=== PATIENT | male | born 1950 | race Caucasian/White ===

== ENCOUNTER 2019-02-18 10:02 | Outpatient (CLI) | payer MEDICARE ==
--- NOTE | 2019-02-18 10:51 | RAD ---
THORACIC SPINE RADIOGRAPHS 3 VIEWS: Date: 02/18/19 PROVIDED CLINICAL HISTORY: Back pain. FINDINGS: Thoracic alignment appears normal in the sagittal plane. Mild left convexity thoracic curvature. Pedi cles appear intact. Vertebral body heights appear preserved. Multilevel thoracic disc degenerative ch anges are seen. IMPRESSION: Multilevel thoracic disc degenerative change. POS: [facility]
--- NOTE | 2019-02-18 10:53 | RAD ---
FRONTAL CHEST RADIOGRAPH WITH 2 VIEWS RIGHT RIBS: Date: 02/18/19 PROVIDED CLINICAL HISTORY: Chest pain. FINDINGS: Comparison made with the chest radiograph of 11/03/12. Cardiac and mediastinal silhouette is unchanged in appearance. Development of left basilar and suprah ilar nodules, the suprahilar of which measures about 1.9 cm. Chronic obstructive changes are redemons trated. No pleural fluid or pneumothorax apparent. There is no evidence for a displaced right-sided rib fracture. IMPRESSION: Left-sided pulmonary nodules. Further evaluation with chest CT is recommended. CODE T. POS: [facility]
== END 2019-02-18 10:03 | disposition home or self-care (01) ==
LOC: BICRAD 10:02
PROVIDERS: ATTEND Family Medicine
DX: M54.6 Pain in thoracic spine (principal); R07.81 Pleurodynia; R91.8 Other nonspecific abnormal finding of lung field; M51.34 Other intervertebral disc degeneration, thoracic region
CPT/HCPCS: 72072

== ENCOUNTER 2019-02-28 11:58 | Outpatient (CLI) | payer MEDICARE ==
--- NOTE | 2019-02-28 14:23 | CT ---
LOW DOSE CHEST CT: DATE: 02/28/2019 COMPARISON: 08/29/2016. HISTORY: Screening examination, current smoker, personal history of nicotine dependence. TECHNIQUE: Axial CT imaging at 1.25 mm intervals from thoracic inlet through upper abdomen without co ntrast. Coronal and sagittal reformatted imaging obtained. FINDINGS: The lack of contrast media limits assessment of the viscera, vascular structures, and for l ymphadenopathy. The imaged upper abdomen demonstrates atherosclerotic calcification of the abdominal aorta and its br anches. No pleural, pericardial, or mediastinal fluid is seen. There is atherosclerotic calcification of the coronary arteries, the aortic arch, and the descending thoracic aorta. Mildly enlarged lymph nodes are seen within the AP window measuring up to 10 mm in short axis dimensi on. No pneumothorax is evident on either side. Left upper lobe: Numerous pulmonary nodules are noted throughout the left upper lobe with an apical p redominance. These nodules demonstrate irregular margins and are almost all new when compared to the prior exam. There are at least 10 such nodules present, measuring up to 8 mm. Left lower lobe: There is a dominant mass in the superior segment of the left lower lobe with irregul ar spiculated margins measuring 2 cm. Numerous additional new pulmonary nodules are noted within the left lower lobe with a superior predominance, all of which demonstrate irregular peripheral nato ns and measure less than a centimeter in size. Left upper lobe: Numerous new irregular subcentimeter pulmonary nodules are noted within the right up per lobe with an apical predominance. Right middle lobe: There are a few scattered subcentimeter irregularly marginated pulmonary nodules, new. Right lower lobe: Numerous irregularly marginated subcentimeter right lower lobe pulmonary nodules ar e present, the majority of which are new when compared to the prior exam. Review of the osseous structures demonstrates an expansile lytic lesion within the fifth rib laterall y on the right. IMPRESSION: Lung-RADS category 4B - suspicious. Recommend further assessment with PET/CT. Findings are concerning for bronchogenic carcinoma within the superior segment of the left lower lobe. Additional pulmonary nodules bilaterally may be metastatic in nature and lytic lesion within the fifth rib on th e right is concerning for metastatic disease. Lung RADS category S - significant atherosclerotic disease, including coronary arterial disease. CODE T Transcribed Date/Time: 02/28/2019 2:52 PM
== END 2019-02-28 11:59 | disposition home or self-care (01) ==
LOC: CT 11:58
PROVIDERS: ATTEND Family Medicine
DX: F17.210 Nicotine dependence, cigarettes, uncomplicated (principal); R91.1 Solitary pulmonary nodule; I25.10 Atherosclerotic heart disease of native coronary artery without angina pectoris
CPT/HCPCS: G0297

== ENCOUNTER 2019-03-10 07:52 | Outpatient (CLI) | payer MEDICARE ==
--- NOTE | 2019-03-10 13:46 | PET ---
PET CT: 03/10/19 HISTORY: 69-year-old male with bronchogenic carcinoma of the left lung. TECHNIQUE: PET scan with CT attenuation correction is performed from the base of the brain through the proximal thighs following the intravenous administration of 11.7 millicuries of 15-fluorodeoxyglucose in the r ight hand. COMPARISON: None. CORRELATION: LDCT of the lungs of 02/28/19. FINDINGS: There is hypermetabolic activity in the 2 cm nodule in the superior segment of the left lower lobe an d an SUV of 4.5. Associated hypermetabolic lymphadenopathy seen in the left hilar lymph nodes with l ymph node with an SUV of 5.4 and in the left mediastinal lymph node with an SUV of 3.6. There is focal increased uptake in the right lateral fifth rib with an SUV of 7.2. There is a hypermetabolic nodule in the deep subcutaneous fat of the left lower posterolateral chest with an SUV of 4.9. Focally increased uptake in the right iliopsoas muscles has an SUV of 7 and the l eft groin musculature with an SUV of 4.6. No hypermetabolic liver or adrenal lesions are seen. There is physiologic activity in the GI and tracts and the visualized portions of the brain. The CT scan used for attenuation correction demonstrates no evidence of pleural effusions or ascites. Multiple parenchymal lung nodules are too small for the resolution of the PET scanner and are consid ered suspicious for metastatic disease despite the absence of hypermetabolic activity on the PET scan . IMPRESSION: Left lower lobe lung malignancy with metastatic disease. POS: CHERRY
== END 2019-03-10 07:53 | disposition home or self-care (01) ==
LOC: PET 07:52
PROVIDERS: ATTEND Family Medicine
DX: C34.32 Malignant neoplasm of lower lobe, left bronchus or lung (principal)
CPT/HCPCS: 78815; A9552

== ENCOUNTER 2019-03-17 08:07 | Day surgery (SDC) | payer MEDICARE ==
[2019-03-16 13:52] VITALS: BMI 27.7
[2019-03-17 08:25] LABS: #Eosinphils 0.3 thou/uL (0.0-0.7); #Lymphocytes 2.1 thou/uL (1.20-3.40); #Monocytes 1.1 thou/uL (0.11-0.59); #Neutrophils 5.7 thou/uL (1.40-6.50); %Basophils 0.5 % (0.0-1.0); %Eosinophils 3.3 % (0.0-10.0); %Neutrophils 61.3 % (42.0-75.0); Mean Corpuscular HGB CONC 34.3 g/dL (32.0-36.0); Mean Corpuscular Volume 93.2 fL (78.0-98.0); Mean Platelet Volume 7.8 fL (7.4-10.4); Platelet Count 275 thou/uL (130-400); RBC Distribution Width 13.2 % (11.5-14.5); Red Blood Cell (RBC) Count 5.01 mill/uL (4.70-6.10); White Blood Cell (WBC) Count 9.3 thou/uL (4.8-10.8)
[2019-03-17 08:39] LABS: Prothrombin Time 12.8 SEC (12.0-14.7)
[2019-03-17 09:27] VITALS: BP 169/73; TEMP 97.7
--- NOTE | 2019-03-17 12:41 | CT ---
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 TECHNIQUE: Signed informed consent obtained. Patient placed supine on CT table. Anterior approach. Entire proced ure was performed under step CT guidance. Overlying skin around the right nipple was prepared and draped in usual sterile fashion. 25-gauge needle used to apply buffered lidocaine superficially and d eeply to the anterior outer surface of right chest wall muscles. 22-gauge spinal needle used to 2 apply local anesthesia, deeper into those muscles and into the surface of the destructive lesion at t he right fifth rib. Tandem with the spinal needle, 17-gauge introducer needle advanced into the anterior portion of the right rib lesion. Stylette removed. 18-gauge biopsy needle advanced in coaxia l fashion through the introducer needle. Biopsy gun fired, yielding little or no tissue. This was repeated, and minimal, tiny fragments were smeared on slides, then placed into formalin. This was rep eated a few more times, for a total of 5 passes. Amount of tissue material is scant. Suspicious cells are visualized on the right microscopy by pathologist, but adequacy is questionable. Needle was removed. Patient tolerated procedure well. No complication is after postbiopsy scan. IMPRESSION: 1. CT-guided 18-gauge percutaneous core biopsy of the osteolytic destructive lesion of the lateral as pect of right fifth rib x5. 2. Scant material. A final pathology report.
== END 2019-03-17 11:45 | disposition home or self-care (01) ==
LOC: CT 08:07
PROVIDERS: ATTEND Internal Medicine
PROC: 0PB13ZX Excision of 1 to 2 Ribs, Percutaneous Approach, Diagnostic (ICD-10-PCS; principal; 2019-03-17)
DX: C79.51 Secondary malignant neoplasm of bone (principal); C80.1 Malignant (primary) neoplasm, unspecified; I10 Essential (primary) hypertension; E78.5 Hyperlipidemia, unspecified; F17.210 Nicotine dependence, cigarettes, uncomplicated; J44.9 Chronic obstructive pulmonary disease, unspecified
CPT/HCPCS: 20225; 36415; 77012; 85025; 85610; 85730; 88173; 88305; 88313; 88333; 88334; 88341; 88342

== ENCOUNTER 2019-03-31 07:37 | Outpatient (CLI) | payer MEDICARE ==
[2019-03-31] MEDS ORDERED: Gadobenate Dimeglumine 529 MG/1 ML (20ML VIAL) ONE (09:00)
--- NOTE | 2019-03-31 09:00 | MRI ---
BRAIN MRI WITH AND WITHOUT CONTRAST: DATE: 03/31/2019. COMPARISON: None available. HISTORY: Lung cancer, assess for metastatic disease. TECHNIQUE: Multiplanar multisequence MR imaging of the brain obtained with and without contrast. FINDINGS: The diffusion weighted imaging demonstrates no evidence for acute infarction. There is a single focus of blooming artifact within the anterior inferior aspect of the left frontal lobe measuring 5 mm. Multiple scattered foci of increased T2 and FLAIR signal noted within the periventricular, deep, and subcortical white matter, suggesting stable small vessel disease. Regional bone marrow signal intensity appears grossly unremarkable. Arterial flow voids at the axial level of the skull base appear unremarkable on the T2-weighted imagi ng. The postcontrast imaging demonstrates no abnormal enhancement to suggest the presence of intracranial metastatic disease within the posterior fossa or brainstem. There is an incidentally noted developmental venous anomaly within the temporal lobe on the right. No abnormal enhancement is identi fied within the cerebellar hemispheres to suggest metastatic disease. The area of blooming artifact mentioned above within the left frontal lobe is likely on the basis of calcification or remote hemorrhage given lack of enhancement in this region. IMPRESSION: No MR evidence of intracranial metastatic disease. Transcribed Date/Time: 03/31/2019 9:11 AM
== END 2019-03-31 07:38 | disposition home or self-care (01) ==
LOC: SCSMRI 07:37
PROVIDERS: ATTEND Internal Medicine Hematology & Oncology
DX: C34.32 Malignant neoplasm of lower lobe, left bronchus or lung (principal)
CPT/HCPCS: 70553; A9577

== ENCOUNTER 2019-04-01 08:47 | Day surgery (SDC) | payer MEDICARE ==
[2019-03-31 14:34] VITALS: BMI 26.9
[~2019-04-01 08:47] MED LIST: Prevnar 13-Val Conj/PF 0.5 ML SYRINGE IM ONE
[2019-04-01] MEDS ORDERED: Midazolam HCl 2 mg/2 ml Vial ONE (09:43)
[2019-04-01] MEDS ORDERED: Fentanyl 100 MCG/2 ML VIAL ONE (09:43)
--- NOTE | 2019-04-01 10:53 | RAD ---
INSPIRATORY EXPIRATORY CHEST RADIOGRAPH: CLINICAL HISTORY: Status post left lung biopsy. FINDINGS: There is no significant postprocedural pneumothorax. Left lower lobe nodule remains, and i s status post biopsy. IMPRESSION: No significant, postprocedural pneumothorax of the left chest. Transcribed Date/Time: 04/01/2019 12:13 PM
--- NOTE | 2019-04-01 11:24 | CT ---
CT GUIDED LEFT LUNG BIOPSY: CLINICAL HISTORY: Left lower lobe pulmonary nodule. PROCEDURE: Informed consent was obtained and the patient was escorted to the procedural suite, placed in prone p osition. The patient's skin was prepped and draped in a standard sterile fashion and topical anesthesia with buffered 1% lidocaine was performed. After a small skin incision was made, a 20-gauge needle were advanced to the leading edge of the left lower lobe pulmonary nodule. After adequate placement was confirmed with CT fluoroscopic imaging, fine-needle aspirate sampling was obtained via percutaneous biopsy. Appropriate location was confirmed with CT fluoroscopic imaging and the specimens were submitted to the pathologist for adequacy. Specimens were deemed adequate for interpre tation. Therefore, all devices were then removed from the patient. No unexpected procedural complications were present. The patient was monitored in radiology holding i n stable condition prior to discharge with family member. IMPRESSION: Technically successful percutaneous left lung biopsy. Pathology results are pending.
--- NOTE | 2019-04-01 12:52 | RAD ---
EXAM: Chest 2 views: HISTORY: Left lung biopsy COMPARISON: CT chest 04/01/2019 FINDINGS: There is a normal-sized cardiomediastinal silhouette. No pneumothorax is seen. There is no evidence of consolidation, mass, or pleural effusion. Multiple left remote rib fractures are seen. IMPRESSION: No evidence of pneumothorax status post left lung biopsy
== END 2019-04-01 12:55 | disposition home or self-care (01) ==
LOC: CT 08:47
PROVIDERS: ATTEND Internal Medicine Hematology & Oncology
DX: C34.32 Malignant neoplasm of lower lobe, left bronchus or lung (principal); F17.210 Nicotine dependence, cigarettes, uncomplicated; I10 Essential (primary) hypertension; M19.90 Unspecified osteoarthritis, unspecified site; Z86.73 Personal history of transient ischemic attack (TIA), and cerebral infarction without residual deficits
CPT/HCPCS: 32405; 71045; 77012; 88172; 88173; 88305; 88341; 88342; J2250; J3010

== ENCOUNTER 2019-04-03 09:59 | Emergency (ER) | payer MEDICARE ==
[2019-04-03] MEDS ORDERED: Ondansetron ODT 4 MG TAB ONE (11:11)
[2019-04-03] MEDS ORDERED: Morphine 4 MG/ML VIAL ONE (11:11)
[2019-04-03] MEDS ORDERED: Ketorolac Tromethamine 30 MG/ML VIAL ONE (11:11)
== END 2019-04-03 11:49 | disposition home or self-care (01) ==
LOC: ERS 09:59
DX: M54.6 Pain in thoracic spine (principal); R07.81 Pleurodynia; F17.210 Nicotine dependence, cigarettes, uncomplicated
CPT/HCPCS: 96372; 99283; J1885; J2270; Q0162

== ENCOUNTER 2019-05-04 08:47 | Day surgery (SDC) | payer MEDICARE, OTHER ==
[~2019-05-04 08:47] MED LIST changes: +CARBOPLATIN IVPB SCH; +Palonosetron HCl 0.25 MG in Sodium Chloride 0.9% 50 ML IVPB SCH; +Pembrolizumab 200 MG in Sodium Chloride 0.9% 250 ML 250 ML IV SCH; +Pemetrexed 1,000 MG in Sodium Chloride 0.9% 60 ML IVPB SCH; -Prevnar 13-Val Conj/PF 0.5 ML SYRINGE IM ONE; +SODIUM CHLORIDE 0.9% IVPB SCH
[2019-05-04] MEDS ORDERED: Sodium Chloride 0.9% 20 ML ONE (08:58)
[2019-05-04 09:58] VITALS: BP 184/84; TEMP 98.8
[2019-05-04] MEDS ORDERED: CARBOPLATIN IVPB SCH (11:15)
[2019-05-04] MEDS ORDERED: SODIUM CHLORIDE 0.9% IVPB SCH (11:15)
[2019-05-04] MEDS ORDERED: Lorazepam 2 MG/ML VIAL SLOW IVP SCH (13:15)
== END 2019-05-04 13:32 | disposition home or self-care (01) ==
LOC: ONC/OP 08:47
PROVIDERS: ATTEND Internal Medicine Hematology & Oncology
DX: Z51.11 Encounter for antineoplastic chemotherapy (principal); C34.32 Malignant neoplasm of lower lobe, left bronchus or lung
CPT/HCPCS: 96375; 96413; 96417; J1100; J2469; J3490; J7050; J9045; J9271; J9305

== ENCOUNTER 2019-05-25 08:19 | Day surgery (SDC) | payer MEDICARE, OTHER ==
[2019-05-25] MEDS ORDERED: Sodium Chloride 0.9% 20 ML ONE (08:57)
[2019-05-25 09:32] VITALS: BP 166/72; TEMP 97.9
== END 2019-05-25 11:43 | disposition home or self-care (01) ==
LOC: ONC/OP 08:19
PROVIDERS: ATTEND Internal Medicine Hematology & Oncology
DX: Z51.12 Encounter for antineoplastic immunotherapy (principal); C34.32 Malignant neoplasm of lower lobe, left bronchus or lung
CPT/HCPCS: 96375; 96413; 96417; J2469; J3490; J7050; J9045; J9271; J9305

== ENCOUNTER 2019-06-15 10:11 | Day surgery (SDC) | payer MEDICARE, OTHER ==
[2019-06-15 15:33] VITALS: BP 136/60; TEMP 98.1
== END 2019-06-15 15:34 | disposition home or self-care (01) ==
LOC: ONC/OP 10:11
PROVIDERS: ATTEND Internal Medicine Hematology & Oncology
DX: Z51.11 Encounter for antineoplastic chemotherapy (principal); C34.32 Malignant neoplasm of lower lobe, left bronchus or lung
CPT/HCPCS: 96375; 96409; 96417; J2469; J3490; J7050; J9045; J9271; J9305

== ENCOUNTER 2019-07-14 12:37 | Outpatient (CLI) | payer MEDICARE, OTHER ==
--- NOTE | 2019-07-14 15:53 | PET ---
PET CT: HISTORY: A 69-year-old male with left lung cancer. Exam requested to evaluate for subsequent therapy. The pa tient is post chemotherapy. TECHNIQUE: PET scan with CT attenuation correction was performed from the base of the brain through the proximal thighs following the intravenous administration of 11.6 mCi [id number] into the left ant ecubital fossa. COMPARISON: PET CT dated 03/10/2019. FINDINGS: There is continued hypermetabolic activity in the 2 cm nodule in the superior segment of the left low er lobe with an SUV of 4 (previously 4.5). This hypermetabolic lymphadenopathy in the left hilar lym ph nodes is again seen with a maximum SUV of 7.8 (previously 5.4). The focal increased uptake in the right lateral 5th rib is again seen with an SUV of 7.7 (previously 7.2). This demonstrates increase in size currently measuring about 4 cm in AP dimension. The right adrenal nodule has increased in size currently measuring 2.5 cm and has developed increased FDG localization with an SUV of 5.6. This is new since the last exam. The hypermetabolic nodule in the deep subcutaneous fat of the left lower posterolateral chest is agai n seen with an SUV of 7.9 (previously 4.9). There are new foci of increased uptake in the right paraspinal musculature at L4-L5 level with an SUV of 9.8 and the left psoas muscle at L4-5 level with an SUV of 3.6. There is continued focal hypermetabolic activity in the right iliopsoas with an SUV of 8.4 (previousl y 7) and the left groin with an SUV of 7.2 (previously 4.6). No hypermetabolic liver lesions are seen. No hypermetabolic lymph nodes are seen in the neck, axilla e, abdomen, or pelvis. There is physiologic activity in the GI and tracts and the visualized portions of the brain. The CT scan used for attenuation correction demonstrates no evidence of pleural effusions or ascites. Multiple parenchymal lung nodules are again seen, too small for the resolution of the PET scanner a nd considered suspicious for metastatic disease despite the absence of hypermetabolic activity on the PET scan. IMPRESSION: Interval worsening of metastatic disease since 03/10/2019. POS: SJYuli
== END 2019-07-14 12:38 | disposition home or self-care (01) ==
LOC: PET 12:37
PROVIDERS: ATTEND Internal Medicine Hematology & Oncology
DX: C34.32 Malignant neoplasm of lower lobe, left bronchus or lung (principal)
CPT/HCPCS: 78815; A9552

== ENCOUNTER 2019-07-27 10:07 | Day surgery (SDC) | payer MEDICARE, OTHER ==
[~2019-07-27 10:07] MED LIST changes: -CARBOPLATIN IVPB SCH; +Cyanocobalamin 1000 MCG/ML VIAL SC SCH; +Dexamethasone 4 MG TAB PO SCH; +Folic Acid 1 MG TAB PO SCH; +Ondansetron 2MG/ML MDV 15 MG in Sodium Chloride 0.9% 50 ML IVP SCH; +Ondansetron HCl/PF 15 MG in Sodium Chloride 0.9% 50 ML IVPB SCH; -Palonosetron HCl 0.25 MG in Sodium Chloride 0.9% 50 ML IVPB SCH; -SODIUM CHLORIDE 0.9% IVPB SCH
[2019-07-27 12:42] VITALS: BP 124/59; TEMP 98.8
== END 2019-07-27 12:48 | disposition home or self-care (01) ==
LOC: ONC/OP 10:07
PROVIDERS: ATTEND Internal Medicine Hematology & Oncology
DX: Z51.11 Encounter for antineoplastic chemotherapy (principal); C34.32 Malignant neoplasm of lower lobe, left bronchus or lung
CPT/HCPCS: 96375; 96413; 96417; J2405; J3420; J3490; J7050; J9271; J9305

== ENCOUNTER → 2019-08-17 | Day surgery (SDC) | payer MEDICARE, OTHER ==
[~2019-08-17] MED LIST changes: -Cyanocobalamin 1000 MCG/ML VIAL SC SCH; -Dexamethasone 4 MG TAB PO SCH; -Folic Acid 1 MG TAB PO SCH; -Ondansetron 2MG/ML MDV 15 MG in Sodium Chloride 0.9% 50 ML IVP SCH; -Ondansetron HCl/PF 15 MG in Sodium Chloride 0.9% 50 ML IVPB SCH; -Pemetrexed 1,000 MG in Sodium Chloride 0.9% 60 ML IVPB SCH; +Sodium Chloride 0.9% 20 ML ONE
[2019-08-17 13:04] VITALS: BP 144/64; TEMP 98.6
== END ==
LOC: ONC/OP 10:03
PROVIDERS: ATTEND Internal Medicine Hematology & Oncology
DX: Z51.11 Encounter for antineoplastic chemotherapy (principal); C34.32 Malignant neoplasm of lower lobe, left bronchus or lung
CPT/HCPCS: 96413

== ENCOUNTER 2019-10-11 09:24 | Outpatient (CLI) | payer MEDICARE, OTHER ==
--- NOTE | 2019-10-11 15:13 | PET ---
Radionucleotide PET scan with CT attenuation correction HISTORY: Lung neoplasm malignant left lower lobe with metastatic disease. Restaging. COMPARISON: 07/14/2019. FINDINGS:Physiologic uptake of radiotracer throughout the enteric system and along each urinary tract . Degenerative uptake at the right acromion clavicular joint. A new small focus of hypermetabolic activity is associated with a small subcutaneous nodule at the ri ght upper back near midline maximum SUV 3.6. At the posterolateral aspect of the left lower back, a large nodule with increased uptake shows maximum SUV 9.6 (previously 7.9). Multiple additional smalle r and less intense subcutaneous nodules are present at the abdomen and pelvis. Newly hypermetabolic lymph nodes at the right axilla show maximum SUV 8.0. Hypermetabolic left axillary lymph nodes maximum max SUV 0.9. Hypermetabolic enlarged left hilar adenopathy shows maximum SUV 11.3 (previously 7.8). The hypermetab olic left lung lower lobe nodule is now obscured on the CT images by complete atelectasis of the left lower lobe. Maximum SUV now 9.6 (previously 4.0) Enlarged left external iliac lymph nodes are now hypermetabolic with maximum SUV 11.3. The large hypermetabolic pleural implant along the lateral aspect of the right chest wall now shows m aximum SUV 9.8 (previously 7.7) smaller pleural-based implant along the posterior aspect of the upper right chest have developed with maximum SUV 8.9. Multiple additional, smaller hypermetabolic pl eural implants are present primarily throughout the left hemithorax. Hypermetabolic osseous lesion of the posterior aspect of the right ninth rib shows maximum SUV 9.0. L esion at the T11 spinous process shows maximum SUV 6.4. The right adrenal lesion now shows maximum SUV 7.8 (previously 5.6). A newly hypermetabolic left adre nal mass shows maximum SUV 10.1. Multiple hypermetabolic muscular masses are again demonstrated: Right posterior paraspinous 28.9 (previously 9.8) Left psoas 27.0 (3.7) Right iliopsoas 11.9 (8.4) Left adductor mirna 10.5 (7.2). newly hypermetabolic right gluteal lesion max SUV 9.4. IMPRESSION : Marked worsening of metastatic disease as detailed above with enlargement and increased uptake of man y lesions and new lesions including the skeleton, left adrenal gland, pleura, lymph nodes, and muscles.
== END 2019-10-11 09:25 | disposition home or self-care (01) ==
LOC: PET 09:24
PROVIDERS: ATTEND Internal Medicine Hematology & Oncology
DX: C34.32 Malignant neoplasm of lower lobe, left bronchus or lung (principal); E27.8 Other specified disorders of adrenal gland; M89.9 Disorder of bone, unspecified; R91.8 Other nonspecific abnormal finding of lung field; M62.89 Other specified disorders of muscle; I89.8 Other specified noninfective disorders of lymphatic vessels and lymph nodes
CPT/HCPCS: 78815; A9552